=== PATIENT | female | born 1955 | race Caucasian/White ===

== ENCOUNTER 2016-11-02 08:33 | Emergency (ER) | payer OTHER ==
[2016-11-02] MEDS ORDERED: ONDANSETRON INJ 4 MG/2 ML VIAL IV ONE (09:08)
[2016-11-02] MEDS ORDERED: KETOROLAC TROMETHAMINE INJ 30 MG/ML VIAL IV ONE (09:08)
[2016-11-02] MEDS ORDERED: SODIUM CHLORIDE 0.9% (FLUSH) 10 ML SYG IV PRN (09:08)
[2016-11-02] MEDS ORDERED: MORPHINE SULFATE INJ 10 MG/ML VIAL IV ONE ×2 (09:10→11:43)
--- NOTE | 2016-11-02 10:44 | CT ---
Study: CT abdomen and pelvis. Indication: LUQ, LLQ ABDOMINAL PAIN Technique: CT of the abdomen and pelvis obtained without intravenous contrast. Comparison: None. Findings: Emphysema. Coronary artery and abdominal aortic atherosclerosis noted. Infrarenal abdominal aortic aneurysm noted measuring up to 7 cm transverse by 6.4 cm AP by 8.2 cm craniocaudal. Benign 6 cm left adrenal myelolipoma. Cholecystectomy clips. Mild hepatomegaly. Spleen and right adrenal gland demonstrate a normal unenhanced CT appearance. Moderate left renal atrophy and cortical thinning. 1 mm central nonobstructing right renal calculus. 2.3 cm cyst superior pole right kidney suspected. Bladder collapsed. Uterus and ovaries likely surgically absent. Colonic diverticulosis without diverticulitis. Stomach and small bowel unremarkable. Appendix not visualized. No free fluid. No free air. No pathologically enlarged abdominal or pelvic lymphadenopathy. degenerative changes of the spine noted. L4-L5 posterior interbody fusion construct. Impression: Infrarenal abdominal aortic aneurysm measuring up to 7 cm transverse. Vascular surgery consultation highly recommended. CTA could better evaluate. In addition, sonographic surveillance recommended every 6 months. Atherosclerosis. Mild hepatomegaly. Left renal atrophy. 1 mm central nonobstructing right renal calculus. Colonic diverticulosis. Emphysema. Additional findings as above. Findings were discussed with Dr. Arboleda at 1040 hr on 11/02/2016. Electronically signed by: Loyd Becerra MD 11/02/2016 10:43
--- NOTE | 2016-11-02 11:17 | ED.PDOC ---
History of Present Illness - General Chief Complaint: Abdominal Pain Stated Complaint: ABDOMINAL PAIN Time Seen by Provider: 11/02/16 09:07 Information Source: patient Exam Limitations: no limitations Additional Information: PT REPORTS SEVERAL DAY HISTORY OF INTERMITTENT LEFT SIDED ABDOMINAL CRAMPING WHICH HAS PROGRESSED TO A CONSTANT PAIN OVER THE PAST 3 DAYS. PAIN IS ASSOCIATED WITH NAUSEA AND LOOSE STOOLS. - History of Present Illness Abdominal Pain Onset Location: LUQ, LLQ Pain Radiation: flank Quality: severe, cramping, steady Timing/Duration: getting worse - INTERMITTENT FOR SEVERAL DAYS BUT NOW CONSTANT Improving Factors: nothing Worsening Factors: nothing Associated Symptoms: back pain, nausea/vomiting Review of Systems - Review of Systems Constitutional: Denies: chills, fever EENTM: Denies: ear pain, nose congestion Respiratory: Denies: cough, short of breath Cardiology: Denies: chest pain, palpitations Gastrointestinal/Abdominal: States: see HPI, abdominal pain, diarrhea, nausea Genitourinary: Denies: dysuria, frequency Musculoskeletal: States: see HPI, back pain. Denies: joint pain Skin: Denies: change in color, lesions Neurological: States: no symptoms reported Endocrine: States: no symptoms reported Hematologic/Lymphatic: States: no symptoms reported Past Medical History (General) - Patient Medical History Hx Stroke: No Hx Dementia: No Hx Congestive Heart Failure: No Hx Hypertension: Yes Hx Thyroid Disease: No Hx Diabetes: Yes Hx Gastroesophageal Reflux: Yes Hx Renal Disease: No Hx Cancer: Yes - Breast Hx of HIV: No Hx Hepatitis C: No Hx MRSA: No Hx Other - free text: CHRONIC BACK PAIN, NEUROPATHY Surgical History: cholecystectomy, Hysterectomy Other Surgeries:: HYSTERECTOMY - Vaccination History Hx Tetanus, Diphtheria Vaccination: No Hx Influenza Vaccination: No Hx Pneumococcal Vaccination: No Immunizations Up to Date: Yes - Social History Hx Tobacco Use: Yes Hx Chewing Tobacco Use: No Hx Alcohol Use: No Hx Substance Use: No Hx Substance Use Treatment: No Hx Depression: No Feels Threatened In Home Enviroment: No Feels Threatened In a Relationship: No Hx Physical Abuse: No Hx Emotional Abuse: No Hx Suspected Abuse: No - Activities of Daily Living Hospice Agency (if applicable):: None - Female History Patient is a Female of Child Bearing Age (10 -59 yrs old): No Patient : No Family Medical History - Family History Mother Family History: Unknown Living Status: Unknown Physical Exam - Physical Exam General Appearance: Alert, Obvious distress - MILD DISTRESS DUE TO PAIN, Well Hydrated, Well Nourished Eyes, Ears, Nose, Throat Exam: normal ENT inspection Neck: non-tender, full range of motion Respiratory: lungs clear, no respiratory distress Cardiovascular/Chest: regular rate, rhythm, no edema, no murmur Gastrointestinal/Abdominal: soft, tenderness - LUQ, LLQ TENDERNESS Back Exam: normal inspection, CVA tenderness (L) Extremity: normal range of motion, normal inspection Neurologic: alert, normal mood/affect, oriented x 3 Skin Exam: normal color, warm/dry Progress - Progress Progress: 11/02/16 11:22 PT REPORTS SIGNIFICANT IMPROVEMENT IN SYMPTOMS AFTER INITIAL TORADOL AND MORPHINE. CT AND LAB FINDINGS DISCUSSED WITH PT. PT AGREES WITH TRANSFER TO [facility] [place]. 11/02/16 11:[address] MCNALLY AT [facility] [place] WHO AGREES TO TAKE TRANSFER A DIRECT ADMIT. - EKG/XRAY/CT CT Ordered: Yes CT Interpretation Call Back: Yes - FINDINGS DISCUSSED WITH DR. SANCHEZ ( RADIOLOGIST) CT Interpretation Call Back Date: 11/02/16 CT Interpretation Call Back Time: 11:00 Departure - Departure Clinical Impression: Abdominal pain, Abdominal aortic aneurysm greater than 39 mm in diameter Time of Disposition: 11:37 Disposition: Transfer to Hospital Condition: Fair Departure Forms: ED Discharge - Pt. Copy, Patient Portal Self Enrollment Instructions: DI for Abdominal Pain-Adult Home Medications: Ambulatory Orders Allopurinol [Zyloprim] 100 mg PO DAILY 03/09/16 Gabapentin [Neurontin] 300 mg PO BID 03/09/16 Hydrochlorothiazide 25 mg PO DAILY 03/09/16 Meloxicam 15 mg PO DAILY 03/09/16 Metformin HCl 1,000 mg PO DAILY 03/09/16 amLODIPine BESYLATE [Norvasc] 10 mg PO DAILY 03/09/16 predniSONE [Prednisone] 20 mg PO BID #10 tab 03/09/16
[2016-11-02 14:12] VITALS: TEMP 99
[2016-11-02 14:20] VITALS: BP 120/60; O2SAT 89
== END 2016-11-02 13:30 | disposition short-term general hospital (02) ==
LOC: ER 08:33
DX: I71.4 Abdominal aortic aneurysm, without rupture (principal); K21.9 Gastro-esophageal reflux disease without esophagitis; G89.29 Other chronic pain; M54.9 Dorsalgia, unspecified; E11.40 Type 2 diabetes mellitus with diabetic neuropathy, unspecified; Z85.3 Personal history of malignant neoplasm of breast; I10 Essential (primary) hypertension; Z87.891 Personal history of nicotine dependence
CPT/HCPCS: 36416; 74176; 80048; 80076; 81001; 83690; 85025; 87086; 96374; 96375; 96376; 99285; J1885; J2270; J2405

== ENCOUNTER → 2016-11-12 | Outpatient (CLI) | payer OTHER ==
--- NOTE | 2016-11-12 14:08 | CT ---
EXAM DESCRIPTION: CT ABDOMEN PELVIS WITHOUT IV CONTRAST CLINICAL HISTORY: 61 y/o 61 y/o ,FF,AAA COMPARISON: 02 November 2016 TECHNIQUE: CT of the abdomen and pelvis is performed according to our non contrast protocol FINDINGS: Today's examination is directly compared with the 02 November 2015 study. There has been interval aortic iliac stent grafting. Stent graft appears in excellent position. A small amount of air is present within the mural thrombus of the mid abdominal aorta likely related to the recent procedure No retroperitoneal hemorrhage is observed. Stable fatty left adrenal mass most consistent with myelolipoma measuring 5.8 x 4.8 cm in size. Liver, spleen, pancreas unremarkable. Indeterminate right renal mass again noted and is unchanged. Tiny nonobstructing calculus mid portion right kidney. Left renal atrophy present. IMPRESSION: 1. Abdominal aortic aneurysm status post very recent stent graft placement 2. Indeterminate but likely benign right renal finding. Ultrasound would be of value to fully characterize the likely cysts in the posterolateral cortex of the right kidney. 3. Myelolipoma left adrenal gland. This is benign. Electronically signed by: Kevin Banuelos MD 11/12/2016 14:06
== END ==
LOC: CT 11:01
PROVIDERS: ATTEND Family Medicine
DX: R10.32 Left lower quadrant pain (principal); I71.4 Abdominal aortic aneurysm, without rupture; D17.79 Benign lipomatous neoplasm of other sites

== ENCOUNTER → 2016-11-22 | Outpatient (CLI) | payer OTHER ==
--- NOTE | 2016-11-22 12:48 | US ---
EXAM DESCRIPTION: US RETROPERITONEUM CLINICAL HISTORY: 61 y/o F, LEFT ADRENAL ADENOMA COMPARISON: CT performed on November 12, 2016 FINDINGS: The right kidney measures 10.0 cm in length. There is a 1.7 cm uncomplicated right renal cyst. No right-sided hydronephrosis or obstructing nephrolithiasis. There is no right renal cortical thinning or perinephric fluid. The left kidney measures 9.3 cm in length. There are several uncomplicated left renal cysts, the largest measuring 1.8 cm diameter. No left-sided hydronephrosis or obstructing nephrolithiasis. There is no left renal cortical thinning or perinephric fluid. The bladder is not visualized on this exam. The abdominal aorta and IVC are not visualized on this exam. IMPRESSION: Bilateral simple renal cysts measuring up to 1.8 cm diameter, otherwise unremarkable exam. The adrenals are not visualized on this exam, but noted on the patient's previous CT was a 6 cm fatty lesion in the left adrenal consistent with a myelolipoma, benign. A lesion of this size can be associated with an increased risk of hemorrhage and, if patient develops new abdominal pain, followup CT is suggested. Electronically signed by: Sergio Branch DO 11/22/2016 12:47
== END ==
LOC: US 10:43
PROVIDERS: ATTEND Urology
DX: N28.9 Disorder of kidney and ureter, unspecified (principal); N28.1 Cyst of kidney, acquired; D35.02 Benign neoplasm of left adrenal gland

== ENCOUNTER → 2016-12-11 | Outpatient (CLI) | payer OTHER | END | disposition home or self-care (01) | LOC: GMAB 14:18 | PROVIDERS: ATTEND Family Medicine | DX: R30.0 Dysuria (principal) ==

== ENCOUNTER 2016-12-19 19:57 | Observation (INO) | payer OTHER ==
--- NOTE | 2016-12-19 21:06 | RAD ---
EXAM DESCRIPTION: Abdomen Series CLINICAL HISTORY: 61 years Female , generalized abd pain and syncope COMPARISON: None. TECHNIQUE: Frontal view chest x-ray and two views of the abdomen. FINDINGS: The cardiomediastinal silhouette appears unremarkable. No consolidating infiltrates or pleural effusions. Mild interstitial prominence in the lungs likely chronic. Surgical clips in the left axillary region. No free air is identified beneath the hemidiaphragms. Gas visualized in some nondilated loops of small bowel and in the colon. No definite bowel obstruction. There is a calcified abdominal aortic aneurysm with changes from stent graft placement. Changes from previous cholecystectomy. Degenerative changes in the spine. Postsurgical changes in the lower lumbar spine.. IMPRESSION: Nonspecific bowel gas pattern. Abdominal aortic aneurysm with changes from previous stent graft placement. Electronically signed by: Rick Cuevas MD 12/19/2016 9:05 PM ANTIQUE AUTOMOBILES REPAIRER
[2016-12-19] MEDS ORDERED: SODIUM CHLORIDE 0.9% 1000ML 1,000 ML IVS ONE (21:12)
--- NOTE | 2016-12-19 21:52 | CT ---
PROCEDURE: Head CLINICAL HISTORY: 61 years Female syncope COMPARISON: None. TECHNIQUE: Contiguous axial images obtained through the brain without IV contrast. FINDINGS: The ventricles and sulci appear unremarkable. No mass lesions. No acute hemorrhage. Atherosclerotic calcifications in the distal vertebral and distal carotid arteries. Mild mucosal thickening within some ethmoid air cells. No depressed calvarial fractures. IMPRESSION: No acute intracranial abnormality is identified. Electronically signed by: Rick Cuevas MD 12/19/2016 9:00 PM ENGINEERING CONSULTANT
[2016-12-19] MEDS ORDERED: HYDROcodone 10MG/APAP 325MG 1 EA TAB PO ONE (22:20)
--- NOTE | 2016-12-19 22:27 | ED.PDOC ---
History of Present Illness - General Chief Complaint: Syncope/Near Syncope Stated Complaint: syncopal episode, left sided weakness Time Seen by Provider: 12/19/16 20:13 Source: patient Exam Limitations: no limitations - History of Present Illness Initial Comments: The patient is a 61-year-old female presenting to the emergency room secondary to being found face down on her living room floor by a relative. The patient was found at around 6 PM and the last time that anyone talked to her was around 2:30 PM. she was altered and found to have a glucose of 41. She had taken her diabetes medication just before her lunch. She does not normally have hypoglycemic issues that she has recently had a cold. She is also having some chronic abdominal pain and has lost approximately 30 pounds over the last 3 months. She also recently had an aortic aneurysm stented across. Her vital signs have been stable since her arrival here. Initially she was having some twitchiness of her left upper extremity. It is possible she may have been down on his extremity for a little while. She is moving it well currently. No other evidence of any injury. She is ambulatory. Timing/Duration: unsure Severity: severe Improving Factors: medication Worsening Factors: nothing Associated Symptoms: loss of appetite, malaise, weakness Allergies/Adverse Reactions: Allergies Meperidine [From Demerol HCl] Allergy (Severe, Verified 12/19/16 20:21) Anaphylaxis Erythromycin Adverse Reaction (Verified 12/19/16 20:21) Home Medications: Ambulatory Orders Allopurinol [Zyloprim] 100 mg PO DAILY 03/09/16 Gabapentin [Neurontin] 300 mg PO BID 03/09/16 Hydrochlorothiazide 25 mg PO DAILY 03/09/16 Meloxicam 15 mg PO DAILY 03/09/16 Metformin HCl 1,000 mg PO DAILY 03/09/16 amLODIPine BESYLATE [Norvasc] 10 mg PO DAILY 03/09/16 Review of Systems - Review of Systems Constitutional: States: malaise EENTM: States: no symptoms reported Respiratory: States: no symptoms reported Cardiology: States: no symptoms reported Gastrointestinal/Abdominal: States: abdominal pain, diarrhea Genitourinary: States: no symptoms reported Musculoskeletal: States: no symptoms reported Skin: States: no symptoms reported Neurological: States: no symptoms reported Hematologic/Lymphatic: States: no symptoms reported All other Systems: No Change from Baseline Past Medical History (General) - Patient Medical History Hx Stroke: No Hx Dementia: No Hx Congestive Heart Failure: No Hx Hypertension: Yes Hx Thyroid Disease: No Hx Diabetes: Yes Hx Gastroesophageal Reflux: Yes Hx Renal Disease: No Hx Cancer: Yes - Breast Hx of HIV: No Hx Hepatitis C: No Hx MRSA: No Surgical History: appendectomy, cholecystectomy, Hysterectomy, other - Vaccination History Hx Tetanus, Diphtheria Vaccination: No Hx Influenza Vaccination: No Hx Pneumococcal Vaccination: Yes - 2017 - Social History Hx Tobacco Use: Yes Hx Chewing Tobacco Use: No Hx Alcohol Use: No Hx Substance Use: No Hx Substance Use Treatment: No Hx Depression: No Hx Physical Abuse: No Hx Emotional Abuse: No Hx Suspected Abuse: No - Female History Patient : No Family Medical History - Family History Mother Family History: Unknown Living Status: Unknown Physical Exam - Physical Exam General Appearance: Alert, Comfortable, No apparent distress Eye Exam: bilateral normal Ears, Nose, Throat: hearing grossly normal, normal ENT inspection, normal pharynx Neck: non-tender, full range of motion, supple Respiratory: chest non-tender, lungs clear, normal breath sounds, no respiratory distress, no accessory muscle use Cardiovascular/Chest: normal peripheral pulses, regular rate, rhythm, no edema Peripheral Pulses: radial,right: 2+, radial,left: 2+, dorsalis pedis,right: 2+, dorsalis pedis,left: 2+ Gastrointestinal/Abdominal: other - the patient has voluntary guarding of her abdomen diffusely. This is apparently not new. She has discomfort to palpation throughout her abdomen but worse in the left upper quadrant and left lower quadrant than elsewhere. She will not let me push deep enough to feel for any pulsatile mass. This is not new either. Rectal Exam: deferred Back Exam: normal inspection, no CVA tenderness, no vertebral tenderness Extremity: normal range of motion, non-tender, normal inspection, no pedal edema , no calf tenderness, normal capillary refill Neurologic: no motor/sensory deficits, alert, normal mood/affect, oriented x 3 Skin Exam: normal color Comments: Vital Signs - 24 hr 12/19/16 20:13 Temperature 96.7 F L Pulse Rate [ 89 left] Respiratory 22 Rate Blood Pressure 170/64 [right] O2 Sat by Pulse 96 Oximetry repeat systolic blood pressures have varied between 120 and 150. Progress - Progress Progress: 12/19/16 22:31 the patient is a 61-year-old female in a syncopal lethargic state due to hypoglycemia. She received an amp of D50 with EMS and has been alert and oriented since. Vital signs and been stable. Hemoglobin and hematocrit are within normal limits for the patient. Abdominal pain is stable from what she has been experiencing for the last 3 months. She received a liter of IV fluids for mild dehydration likely due to the diarrhea. We are collecting a C. difficile on the stool. Urinalysis still pending. The patient will be admitted for monitoring for any further hypoglycemia and for cardiac monitoring overnight. Head CT is negative for any acute changes. X-ray of the abdomen and chest are negative for acute changes otherwise. We're not performing a CT scan on the abdomen and pelvis at this time due to no change in abdominal symptoms and due to the fact that the patient has had 4 or 5 over the last 2 months already. if vital signs become unstable or abdominal symptoms change then a CT scan would be warranted. likelihood of acute aortic pathology is small given normal vital signs, a normal hemoglobin and hematocrit, and no change in abdominal discomfort from her baseline. - Results/Orders Results/Orders: 12/19/16 20:14 Telemetry .CONTINUOUS UA [URINALYSIS] Stat 12/19/16 20:15 EKG STAT shows normal sinus rhythm with a right bundle branch block. There is possibly a half a millimeter ST elevation in lead [address] segment elevation and other leads. No T wave inversions with the exception of v1. Marlow is normal. Abdominal series shows no acute pathology. No free air. No obvious infiltrates. Changes of stenting across the aorta are noted. 12/19/16 22:08 CLOSTRIDIUM DIFFICILE AG/TOXIN Stat pending INFLUENZA A & B ANTIGEN Stat 12/19/16 22:22 GLUCOSE, FINGER STICK Stat pending Laboratory Results - last 24 hr 12/19/16 20:30 WBC 6.9 RBC 3.97 L Hgb 11.9 L Hct 36.4 MCV 91.7 MCH 29.9 MCHC 32.6 L RDW 15.4 H Plt Count 291 MPV 7.6 Absolute Neuts (auto) 5.40 Absolute Lymphs (auto) 1.10 Absolute Monos (auto) 0.30 Absolute Eos (auto) 0.00 Absolute Basos (auto) 0.00 Neutrophils % 78.9 H Lymphocytes % 16.0 L Monocytes % 4.2 Eosinophils % 0.4 L Basophils % 0.5 PT 10.6 INR 0.940 PTT (SP) 29.9 Sodium 133 L Potassium 4.4 Chloride 102 Carbon Dioxide 19 L Anion Gap 16.4 BUN 33 H Creatinine 1.66 H BUN/Creatinine Ratio 19.9 Random Glucose 213 H Serum Osmolality 280.0 Calcium 9.3 Magnesium 1.8 Total Bilirubin 0.3 AST 26 ALT 15 Alkaline Phosphatase 58 Creatine Kinase 39 CK-MB (CK-2) 1.7 Troponin I < 0.02 B-Natriuretic Peptide 383.0 H* Serum Total Protein 8.4 H Albumin 3.8 Globulin 4.6 H Albumin/Globulin Ratio 0.8 L Amylase 64 Lipase 41 TSH 0.90 Departure - Departure Clinical Impression: Hypoglycemia, Syncope and collapse Disposition: Admit Patient Condition: Fair Departure Forms: ED Discharge - Pt. Copy, Patient Portal Self Enrollment Home Medications: Ambulatory Orders Allopurinol [Zyloprim] 100 mg PO DAILY 03/09/16 Gabapentin [Neurontin] 300 mg PO BID 03/09/16 Hydrochlorothiazide 25 mg PO DAILY 03/09/16 Meloxicam 15 mg PO DAILY 03/09/16 Metformin HCl 1,000 mg PO DAILY 03/09/16 amLODIPine BESYLATE [Norvasc] 10 mg PO DAILY 03/09/16 Decision To Admit - Decistion To Admit Decision to Admit Reason: Medical Nature Decision to Admit Date: 12/19/16 Decision to Admit Time: 22:35
[2016-12-19] MEDS ORDERED: SODIUM CHLORIDE 0.9% (FLUSH) 10 ML SYG IV PRN (23:10)
[2016-12-19] MEDS ORDERED: DEXTROSE 50% 25 GM/50 ML SYG IV PRN (23:17)
[2016-12-19] MEDS ORDERED: GLUCAGON INJ 1 MG VIAL SUBCU PRN (23:17)
[2016-12-19] MEDS ORDERED: IV SET AND CAP CHANGE INJ INJ SCH (23:30)
[2016-12-19] MEDS ORDERED: PANTOPRAZOLE SODIUM IV 40 MG VIAL IV SCH (23:30)
[2016-12-20] MEDS ORDERED: HYDROcodone 5MG/APAP 325MG 1 EA TAB ONE (01:27)
[2016-12-20] MEDS: HYDROcodone 5MG/APAP 325MG 1 EA TAB PO PRN ×2 (01:31→06:05)
[2016-12-20] MEDS ORDERED: SODIUM CHLORIDE 0.9% 10 ML VIAL IV PRN (07:16)
[2016-12-20] MEDS ORDERED: hydroCHLOROthiazide 25 MG TAB PO SCH (09:00)
[2016-12-20] MEDS ORDERED: ALLOPURINOL 100 MG TAB PO SCH (09:00)
[2016-12-20] MEDS ORDERED: amLODIPine BESYLATE 5 MG TAB PO SCH (09:00)
[2016-12-20] MEDS ORDERED: SODIUM CHLORIDE 0.9% (FLUSH) 10 ML SYG IV SCH (09:00)
[2016-12-20] MEDS ORDERED: GABAPENTIN 300 MG CAP PO SCH ×2 (09:00→21:00)
[2016-12-20] MEDS ORDERED: metFORMIN HCL 500 MG TAB PO SCH (09:00)
[2016-12-20] MEDS ORDERED: NICOTINE PATCH 21 MG TD SCH (10:00)
[2016-12-20] MEDS ORDERED: DICYCLOMINE HCL 20 MG TAB PO ONE (10:30)
[2016-12-20] MEDS: glipiZIDE 5 MG TAB PO SCH ×2 (11:27→17:14)
[2016-12-20] MEDS: DICYCLOMINE HCL 20 MG TAB PO SCH ×2 (13:26→17:00)
[2016-12-20 14:54] VITALS: BP 108/53; TEMP 98.5
[2016-12-20 16:35] VITALS: O2SAT 92
--- NOTE | 2016-12-20 21:28 | SSS ---
SUPERVISING PHYSICIAN: Trevor Rico M.D. DISCHARGE DIAGNOSES: 1. Hypoglycemia. 2. Altered mental status. 3. Abdominal pain that has been going on for several months. 4. Diabetes mellitus type 2. 5. Neuropathy. 6. Gout. 7. Hypertension. HISTORY OF PRESENT ILLNESS: This is a 61 year-old female patient who presented to the Emergency Room on the date of admission due to a hypoglycemic event at home where she was found down about 6:00 PM. Some family members went to check on her and she was found down in the floor for an unknown amount of time. EMS was called and she was found to have a blood sugar of 41. Some D50 was given and she responded well to the dextrose solution. She had taken her diabetic medicine which is Glipizide just before lunch. She normally has no problems with hypoglycemia, but she has had abdominal pain on and off for several months and in fact has been scheduled several times for an upper and lower gastrointestinal scope per Dr. Mills, but the patient is having a difficult time paying for her endoscopies. Dr. Beverly, her primary care physician, has given her several prescriptions of antibiotics as well as some antispasmodics and they are in the process of working out something for her to get her GI system scoped. It is to be noted that several months ago as an incidental finding she was found to have a abdominal aortic aneurysm and it was stented within the last several months. She responded well in the Emergency Room and had no further hypoglycemic events. Her white count was normal at 6.9, hemoglobin 11.9 , hematocrit 36.4, platelets 291. Coagulation studies were within normal limits. Sodium 133, potassium 4.4, chloride 102, carbon dioxide 19, BUN 33, creatinine 1.66. Her baseline creatinine is around 1.6 to 1.9. Urine was within normal limits. Head CT showed no acute intracranial abnormality. Chest x-ray showed a nonspecific bowel gas pattern with abdominal aortic aneurysm with changes from previous stent graft placement. Flu swab was negative. Clostridium Difficile stool study was negative. I was called for admission to the hospital so she could be observed for any cardiac issues or hypoglycemic events overnight. PAST MEDICAL HISTORY: 1. Abdominal aortic aneurysm. 2. Generalized abdominal pain. 3. Gout. 4. History of breast cancer. 5. Hypertension. 6. Low back pain. 7. Lumbar radiculopathy. 8. Mixed hyperlipidemia. 9. Peripheral neuropathy attributed to type 2 diabetes mellitus. 10. Diabetes mellitus type 2. 11. Renal insufficiency. PAST SURGICAL HISTORY: 1. Cholecystectomy. 2. Hysterectomy. 3. Mastectomy. 4. Back surgery. 5. Abdominal aortic aneurysm stent repair. OUTPATIENT MEDICATIONS: Per the EMR awaiting verification. ALLERGIES: DEMEROL. FAMILY HISTORY: Positive for lung cancer, diabetes and stroke. SOCIAL HISTORY: She smokes 1 to 5 cigarettes per day. She denies any ETOH or illicit drug use. REVIEW OF SYSTEMS: GENERAL: Complains of fatigue. Denies fever or chills. HEENT: Denies sinus symptoms, ear pain or vision changes. RESPIRATORY: Denies shortness of breath, coughing or wheezing. CARDIAC: Denies chest pain, palpitations or tachycardia. GASTROINTESTINAL: Complains of abdominal pain and cramping that comes and goes on a daily basis. She and Dr. Beverly have been addressing those abdominal problems. GENITOURINARY: Denies hematuria, nocturia or polyuria. MUSCULOSKELETAL: No arthralgias or myalgias. SKIN: No lesions or rashes. NEUROLOGIC: As per the History of Present Illness. PHYSICAL EXAMINATION: VITAL SIGNS: She is afebrile, heart rate 63, blood pressure 108/53, respiratory rate 18, O2 sat 94% on 2 liters nasal cannula, 92% on room air. GENERAL: This is a 61 year-old female patient lying in her hospital bed. She is in no acute distress. HEENT: Normocephalic and atraumatic. Pupils are equal and reactive. Oropharynx is clear. NECK: Supple without mass. CHEST: Clear to auscultation bilaterally. There is equal rise and fall of the chest with inspiration and expiration. CARDIOVASCULAR: Regular rate and rhythm. ABDOMEN: Diffusely tender throughout but soft. Bowel sounds are positive. EXTREMITIES: No cyanosis, clubbing or edema. NEUROLOGIC: She is awake, alert and oriented times three. LABORATORY: Blood sugars since admission have been 86 to 213. CMP has basically been within normal limits with the exception of her BUN is 34 and creatinine is 1.67. All other labs and films have been reviewed via the EMR. HOSPITAL COURSE: The patient was admitted overnight for observation. She had no further problems with hypoglycemia. Nilsa Salinas, our Compensation And Hris Analyst , is assisting her with her insurance and helping her to get her needed endoscopies done. Her Glipizide was held due to her low blood sugars. Her Bentyl was increased to help with the abdominal pain. She has had no further complications or changes in her mental status. She can be discharged home. DISCHARGE PLAN: We will discharge the patient home in good condition. I will give her a new prescription of Glipizide that decreases the dosing to 2.5 twice a day. She is to hold her Glipizide if she does not eat. I will also increase her Bentyl to 20 mg as needed q.i.d. She will followup with Dr. Beverly on at 10:00 AM. She is to resume her diabetic diet and to resume her previous activity, and increase as tolerated. She is to return to the hospital or to Dr. Beverly's office for further complications. DISCHARGE MEDICATIONS: 1. Amlodipine. 2. Gabapentin. 3. Zyloprim. 4. Meloxicam. 5. Hydrochlorothiazide. 6. Hydrocodone. 7. Aspirin. 8. Glipizide. 9. Nicotine patch. Dr. Rico is the collaborating physician available for consultation. #[id number] [facility]
== END 2016-12-20 17:45 | disposition home or self-care (01) ==
LOC: ER 19:57 → MS 22:49
PROVIDERS: ADMIT Nurse Practitioner Acute Care; ATTEND Nurse Practitioner Acute Care
DX: E11.649 Type 2 diabetes mellitus with hypoglycemia without coma (principal); R41.82 Altered mental status, unspecified; R10.84 Generalized abdominal pain; E11.42 Type 2 diabetes mellitus with diabetic polyneuropathy; M10.9 Gout, unspecified; I10 Essential (primary) hypertension; R55 Syncope and collapse; I71.4 Abdominal aortic aneurysm, without rupture; M54.16 Radiculopathy, lumbar region; E78.2 Mixed hyperlipidemia; I45.10 Unspecified right bundle-branch block; F17.210 Nicotine dependence, cigarettes, uncomplicated; Z79.84 Long term (current) use of oral hypoglycemic drugs; Z79.1 Long term (current) use of non-steroidal anti-inflammatories (NSAID); Z79.899 Other long term (current) drug therapy; Z88.3 Allergy status to other anti-infective agents; Z88.6 Allergy status to analgesic agent; Z85.3 Personal history of malignant neoplasm of breast; Z90.10 Acquired absence of unspecified breast and nipple; Z90.49 Acquired absence of other specified parts of digestive tract; Z90.710 Acquired absence of both cervix and uterus; Z80.1 Family history of malignant neoplasm of trachea, bronchus and lung; Z83.3 Family history of diabetes mellitus; Z82.3 Family history of stroke
CPT/HCPCS: 36415; 36416; 70450; 74020; 80053 ×2; 81001; 82150; 82550; 82553; 82947 ×2; 82948 ×2; 83690; 83735; 83880; 84443; 84484; 85025 ×2; 85610; 85730; 87324; 87804; 93005; 94762; 96361; 96374; 99284; 99406; G0378; J7030

== ENCOUNTER 2017-03-12 13:22 | Inpatient (IN) | payer SELFPAY ==
--- NOTE | 2017-03-12 13:24 | HP ---
HISTORY OF PRESENT ILLNESS: This 62-year-old, white female is admitted to the hospital from Dr. Beverly's office as a direct admit. She was seen earlier today with worsening generalized abdominal pain with associated nausea, vomiting, and diarrhea, getting worse and persistent even though seen multiple times for the last 5 months. She has had about a 24 pound weight loss. She spends most of her time in the bed. She was able to have Dr. Mills perform an upper and lower endoscopy about 2 months ago and no specifically pathology was otherwise noted. The pain is in the mid abdomen. There is no rectal bleeding noted. She has some very loose diarrhea stools, generally somewhat yellow in color. She had an aneurysmal repair work in [place] in October of this year by Dr. Gonsalez and has slowly recovered from it, though it resulted in a lot of her abdominal discomforts being noted. In the clinic, she was noted to have a white count of over 20,000 with a low potassium of 2.7, BUN 47, creatinine 2.0. She was admitted to the hospital specifically because of the symptomatic hypokalemia, probably contributed to by the chronic hydrochlorothiazide use for blood pressure control. PAST MEDICAL HISTORY: 1. Abdominal aortic aneurysm. 2. Generalized abdominal pain. 3. Gout. 4. History of breast cancer. 5. Hypertension. 6. Low back pain. 7. Lumbar radiculopathy. 8. Mixed hyperlipidemia. 9. 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 10. Diabetes mellitus, type 2. 11. Renal insufficiency. PAST SURGICAL HISTORY: 1. Abdominal aortic aneurysmal stent repair in October of this year. 2. Gallbladder surgery. 3. Hysterectomy. 4. Mastectomy. 5. Back surgery. CURRENT MEDICATIONS: Please refer to list by nursing which is verified for home medications. ALLERGIES: DEMEROL. FAMILY HISTORY: Positive for cancer, diabetes, and strokes. 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 She lives with her sister. She stopped smoking about 5 months ago when she had her aneurysm repaired with a stent. REVIEW OF SYSTEMS: GENERAL: The patient has noted some weight loss and recorded by Dr. Beverly to be about 24 pounds in the last several months. No fever or chills. HEENT: Unremarkable. LUNGS: Chronic cough with some exertional shortness of breath. CARDIOVASCULAR: No significant palpitations or chest pains. GASTROINTESTINAL: Decreased appetite, some nausea, vomiting, diarrhea, bloating with abdominal discomfort, especially in the upper quadrant. GENITOURINARY: No dysuria. EXTREMITIES: Chronic joint discomforts. NEUROLOGIC: No significant focal neurologic deficits. PHYSICAL EXAMINATION: VITAL SIGNS: Afebrile. Blood pressure 101/57. Pulse oximetry 96% on room air. HEENT: Unremarkable. NECK: Supple. LUNGS: Diminished breath sounds. CARDIOVASCULAR: Heart tones are regular. ABDOMEN: Soft with some diminished bowel tone activity. Somewhat tender, especially in the epigastrium to right upper quadrant. No specific masses noted. NEUROLOGIC: Generally quite weak. No focal weakness evident. No pedal edema. LABORATORY: Performed in Dr. Beverly's office, we do not have a copy of the labs showing white count 20,000, potassium 2.7, BUN 47, creatinine 2.0. ASSESSMENT: 1. Chronic abdominal pain present for about 5 months or longer off and on. 2. Moderate dehydration with the patient somewhat dizzy when standing up. 3. Marked leukocytosis with 20,0000 white count. 4. Hypokalemia, 2.7, severe with symptoms. 5. Mild renal insufficiency with creatinine 2.0 and BUN 47. 6. Diabetes mellitus, type 2, on oral therapy. 7. Oral thrush, treatment initiated. 8. History of hypertension. PLAN: The patient is admitted to the hospital for the purpose of stabilization. Special supplementation of the potassium is given as well as fluids to assist with moderately dehydrated state. She will require close followup and management with close followup in the outpatient clinic when clinically stable to be discharged. #[id number] [facility]
[2017-03-12] MEDS ORDERED: SODIUM CHLORIDE 0.9% (FLUSH) 10 ML SYG IV PRN (16:56)
[2017-03-12] MEDS ORDERED: IV SET AND CAP CHANGE INJ INJ SCH (17:00)
[2017-03-12] MEDS ORDERED: KCL 20MEQ/WATER FOR INJ 100ML 20 MEQ in PREMIX BAG 1 BAG IVPB ONE (17:01)
[2017-03-12] MEDS ORDERED: KCL 20MEQ/WATER FOR INJ 100ML 100 ML IVPB ONE (17:50)
[2017-03-12] MEDS ORDERED: SODIUM CHLORIDE 0.9% 10 ML VIAL ONE (17:51)
[2017-03-12] MEDS: PANTOPRAZOLE SODIUM IV 40 MG VIAL IV SCH (18:22)
[2017-03-12] MEDS: KCL 20 MEQ/NS 1,000 ML IVS PRN (18:28)
[2017-03-12] MEDS ORDERED: ACETAMINOPHEN W/COD #3 TAB (ER Disp) PO PRN (19:09)
[2017-03-12] MEDS: HYDROcodone 5MG/APAP 325MG 1 EA TAB PO PRN (19:59)
[2017-03-12] MEDS: SUCRALFATE 1 GM/10 ML 1 GM UD PO SCH (20:55)
[2017-03-12] MEDS: NYSTATIN SUSPENSION 5 ML UD MT SCH (20:55)
[2017-03-12] MEDS ORDERED: NON-FORMULARY MEDICATION 1 EA MIS (Gabapentin [Gabapentin] 600 MG) PO SCH (21:00)
[2017-03-13] MEDS: KCL 20 MEQ/NS 1,000 ML IVS PRN ×2 (02:37→12:24)
[2017-03-13] MEDS: SUCRALFATE 1 GM/10 ML 1 GM UD PO SCH ×3 (06:16→15:18)
[2017-03-13] MEDS ORDERED: glipiZIDE 5 MG TAB ONE (07:25)
[2017-03-13] MEDS: glipiZIDE EXTENDED REL (XL) 2.5 MG TAB PO SCH ×2 (07:44→18:29)
[2017-03-13] MEDS: NYSTATIN SUSPENSION 5 ML UD MT SCH ×3 (08:53→18:29)
[2017-03-13] MEDS ORDERED: ASPIRIN EC 81 MG TAB PO SCH (09:00)
[2017-03-13] MEDS ORDERED: GABAPENTIN 300 MG CAP PO SCH ×2 (09:00→21:00)
[2017-03-13] MEDS: HYDROcodone 5MG/APAP 325MG 1 EA TAB PO PRN (09:47)
[2017-03-13 10:28] VITALS: O2SAT 97
--- NOTE | 2017-03-13 14:07 | CONS ---
DATE OF CONSULTATION: 03/13/17 HISTORY OF PRESENT ILLNESS: Ms. Worrell is a 62-year-old female who is well known to me. She had had continuous medical encounter for the last 6 months. She presented with acute abdominal pain to [facility] 6 months ago. The pain was thought to be due to expanding aortic aneurysm. The patient subsequently underwent aortic aneurysm repair and graft placement. Multiple vascular studies were done. I was unable to find a definite study to look into her mesenteric circulation. The pain persisted despite vascular reconstruction. The pain is mostly diffuse. Since then, she underwent upper and lower endoscopy with finding of only occasional diverticulosis. She has significant functional abdominal pain and constipation which also was relieved by using MiraLAX, Metamucil and Bentyl. For the last few months, her symptoms had improved, but she came back in again with severe abdominal pain, nausea, vomiting. Admission laboratory studies were pertinent for white count of 20,000. PHYSICAL EXAMINATION: Today, she has no rebound tenderness. Abdomen is soft and nondistended. There are no definite objective findings other than subjective complaint of pain and nausea. This lady also had urological evaluation multiple times and were all negative. ASSESSMENT: Abdominal pain with ill-defined etiology. Extensive evaluation so far has been noncontributory. The white count of 20,000 is slightly disturbing. It speaks for organic etiology. RECOMMENDATION: I think we definitely have to exclude small bowel mesenteric angina. I would recommended small bowel CT angiography to exclude vascular circulation difficulty. If this is negative, may have to consider 24 hour urine study for heavy metal screening and 24 hour urine for porphyria. #[id number] [facility]
[2017-03-13] MEDS ORDERED: CHLORTHALIDONE 25 MG TAB ONE (14:57)
[2017-03-13] MEDS ORDERED: TERAZOSIN 5 MG CAP PO ONE (14:57)
[2017-03-13] MEDS ORDERED: ATENOLOL 25 MG TAB ONE (15:13)
[2017-03-13 15:42] VITALS: BP 131/70; TEMP 98.7
--- NOTE | 2017-03-13 16:29 | CT ---
EXAM DESCRIPTION: CTA Abdomen CLINICAL HISTORY: 62 years Female abd pain COMPARISON: None. TECHNIQUE: Contiguous axial images obtained through the abdomen during the infusion of IV contrast. Reformatted images obtained. 3-D MIP reformatted images obtained. This exam was performed according to our department optimization program which includes automated exposure control, adjustment of the mA and/or kv according to patient size and/or use of iterative reconstruction technique. FINDINGS: The lung bases are clear. Fatty replacement in the liver. The spleen and pancreas appear unremarkable. Stable left adrenal gland lesion consistent with a myelolipoma. This measures approximately 5.5 x 4.5 cm in diameter. Tiny myelolipoma in the right adrenal gland which appears similar. Small renal cysts. No hydronephrosis. Changes from previous cholecystectomy. Atherosclerotic changes in the aorta. There is calcific plaquing in the superior mesenteric artery with severe stenosis at the origin. There are likely other areas of moderate to severe stenosis in the more peripheral branches. There is likely severe stenosis at the origins of the renal arteries. The inferior mesenteric artery is not visualized. There is an abdominal aortic aneurysm measuring approximately 6.5 cm in maximum diameter. This compares to a measurement of 6.75 cm on the previous study. There are changes from stent graft placement. No graft leak is visualized. No bowel obstruction. There is fluid in the colon which could indicate a diarrheal state. There are changes of colonic diverticulosis. There is pneumatosis in the ascending colon and throughout the proximal transverse colon. There is likely mild bowel wall thickening in the ascending and proximal transverse colon with mild surrounding inflammatory changes. The findings are concerning for ischemic change. Degenerative changes in the spine. Postsurgical changes in the lower lumbar spine. IMPRESSION: There is pneumatosis in the ascending and proximal transverse colon with mild bowel wall thickening and surrounding inflammatory changes. The findings are concerning for ischemic bowel. There are severe atherosclerotic changes with severe stenosis in the superior mesenteric artery. The inferior mesenteric artery is not visualized. There is likely severe stenosis at the origins of the bilateral renal arteries. There is an infrarenal abdominal aortic aneurysm with changes from stent graft treatment. Findings were called to Jenny, nurse practitioner, at approximately 4:25 PM. Electronically signed by: Rick Cuevas MD 03/13/2017 4:28 PM CDT
[2017-03-13] MEDS ORDERED: MORPHINE SULFATE INJ 10 MG/ML VIAL ONE (18:12)
[2017-03-13] MEDS ORDERED: MORPHINE SULFATE INJ 10 MG/ML VIAL IV PRN (18:13)
[2017-03-13] MEDS: PANTOPRAZOLE SODIUM IV 40 MG VIAL IV SCH (18:29)
--- NOTE | 2017-03-13 21:30 | PN ---
DATE: 03/13/17 SUPERVISING PHYSICIAN: Trevor Rico M.D. SUBJECTIVE: The patient is sitting up in the bed. She says she does not feel very well. She has not had any nausea or vomiting, but she does complain that her abdomen continues to be very sore. She just feels "awful." OBJECTIVE: Temperature is 100.2, heart rate 67, blood pressure 109/55, respiratory rate 20, O2 sat is 97% on 2 liters nasal cannula. RESPIRATORY: Clear to auscultation bilaterally. CARDIAC: Regular rate and rhythm. ABDOMEN: Diffusely tender. Bowel sound are positive. She is slightly more tender in the right upper quadrant but there is no rebound tenderness. EXTREMITIES: No cyanosis, clubbing or edema. NEUROLOGIC: She is awake, alert and oriented times three. LABORATORY: WBCs are 14.4, hemoglobin 10.4, hematocrit 31.8. BUN 46, creatinine 1.92, C reactive protein 13.4. All other labs and films have been reviewed via the EMR. ASSESSMENT: 1. Chronic abdominal pain present for about 5 months or longer off and on. 2. Moderate dehydration with the patient somewhat dizzy when standing up. 3. Marked leukocytosis with 20,0000 white count. 4. Hypokalemia, 2.7, severe with symptoms. 5. Mild renal insufficiency with creatinine 2.0 and BUN 47. 6. Diabetes mellitus, type 2, on oral therapy. 7. Oral thrush, treatment initiated. 8. History of hypertension. PLAN: We will continue present supportive care. I spoke with Dr. Mills this morning who was consulted on Ms. Worrell's case. He did an upper and lower GI scope about a month ago and there were no acute findings at that time. He did say he was concerned for some mesenteric angina and he recommended that we do a CTA of her abdomen. He also recommended that we do a 24 hour urine for heavy metals and porphyria. The CTA of her abdomen has been ordered. I will also give her some extra IV fluids due to her creatinine clearance being elevated and we will give her some extra fluids. I will repeat her labs as well as monitor closely and followup as needed. Dr. Rico is the collaborating physician and available for consultation. #[id number] [facility]
--- NOTE | 2017-03-14 11:33 | DS ---
SUPERVISING PHYSICIAN: Trevor Rico MD DISCHARGE DIAGNOSIS: 1. Ischemic bowel per CTA of the abdomen with concerns for septicemia. 2. Chronic abdominal pain present for about 5 months or longer off and on. 3. Moderate dehydration with the patient somewhat dizzy when standing up. 4. Marked leukocytosis with 20,0000 white count. 5. Hypokalemia, 2.7, severe with symptoms. 6. Mild renal insufficiency with creatinine 2.0 and BUN 47. 7. Diabetes mellitus, type 2, on oral therapy. 8. Oral thrush, treatment initiated. 9. History of hypertension. HISTORY OF PRESENT ILLNESS: This is a 62-year-old, female patient who was seen in her primary care physician's office, Dr. Beverly, and was sent to our hospital for a direct admit. She has had worsening generalized abdominal pain with associated nausea, vomiting and diarrhea that is getting worse and has been persistent even though she has been seen multiple times in the last 5 months. She states she had had about a 24 pound weight loss. About 2 months ago, Dr. Mills performed an upper and lower GI on her and there was no specific pathology noted. On admission, her WBCs were around 20,000. This morning, her white count was still elevated at 14,400 and her CRP was 13.4. Her BUN was 46 and creatinine was 1.92. She continued to have abdominal pain and just generally feeling poorly, so Dr. Mills, drywall finishing foreman, was consulted. He examined the patient this morning and again told me that his upper and lower GI that he had done several months ago was unremarkable and his recommendations were that we do a CTA of the abdomen to rule out mesenteric angina. A CTA of the abdomen was obtained this afternoon and per radiologic interpretation, she was found to have pneumatosis in the ascending and proximal transverse colon with mild bowel wall thickening and surrounding inflammatory changes. The findings are concerning for ischemic bowel. I discussed her case with Dr. Mc as well as Dr. Rico. We decided to transfer the patient to a higher level of care. I spoke with Dr. Swati Mccormick, surgeon in [place] at [facility], and she agreed to accept the patient. Marcin was called and the patient will be discharged to [facility]. DISCHARGE PLAN: The patient will be discharged to [facility]. Her medical information was sent with her as well as a CD of her radiographic studies. She was sent to [facility] via [facility]. DISCHARGE MEDICATIONS: 1. Amlodipine. 2. Gabapentin. 3. Hydrochlorothiazide. 4. Aspirin. 5. Nicotine patch. 6. Acetaminophen with codeine. 7. Cyclobenzaprine. 8. Dicyclomine. 9. Glipizide. Dr. Rico is the collaborating physician and available for consultation. #[id number] [facility]
== END 2017-03-13 18:30 | disposition short-term general hospital (02) | DRG 872 ==
LOC: MS 13:22
PROVIDERS: ADMIT Emergency Medicine; ATTEND Nurse Practitioner Acute Care
PROC: B420YZZ Computerized Tomography (CT Scan) of Abdominal Aorta using Other Contrast (ICD-10-PCS; principal; 2017-03-13)
PROC: BW20YZZ Computerized Tomography (CT Scan) of Abdomen using Other Contrast (ICD-10-PCS; 2017-03-13)
DX: A41.9 Sepsis, unspecified organism (principal); K55.9 Vascular disorder of intestine, unspecified; B37.0 Candidal stomatitis; E86.0 Dehydration; E87.6 Hypokalemia; N28.9 Disorder of kidney and ureter, unspecified; I10 Essential (primary) hypertension; T50.2X5A Adverse effect of carbonic-anhydrase inhibitors, benzothiadiazides and other diuretics, initial encounter; Y92.009 Unspecified place in unspecified non-institutional (private) residence as the place of occurrence of the external cause; M10.9 Gout, unspecified; M54.16 Radiculopathy, lumbar region; E78.2 Mixed hyperlipidemia; G89.29 Other chronic pain; E11.42 Type 2 diabetes mellitus with diabetic polyneuropathy; Z79.84 Long term (current) use of oral hypoglycemic drugs; Z95.828 Presence of other vascular implants and grafts; Z85.3 Personal history of malignant neoplasm of breast; Z88.5 Allergy status to narcotic agent; Z87.891 Personal history of nicotine dependence